=== PATIENT | male | born 1950 | race Caucasian/White ===

== ENCOUNTER 2016-07-06 07:13 | Day surgery (SDC) | payer OTHER ==
--- NOTE | 2016-07-03 14:23 | EKG Report ---
Test Performed on : 07/03/2016 2:19:09 PM Test Reason : PAT Blood Pressure : / mmHG Vent. Rate : 068 BPM Atrial Rate : 068 BPM P-R Int : 166 ms QRS Dur : 100 ms QT Int : 398 ms P-R-T Axes : 064 -33 022 degrees QTc Int : 423 ms Normal sinus rhythm. Left axis deviation Abnormal ECG When compared with ECG of 12-APR-2015 10:09, No significant change was found Confirmed by Jennifer NEELY, Rai Perry ([id number]) on 07/03/2016 4:28:42 PM
[2016-07-03 15:20] LABS: HEMATOCRIT 42.6 % (42.0-52.0); HEMOGLOBIN 14.1 g/dL (14.0-18.0); MCH 30.1 PG (27-31); MCHC 33.1 g/dL (33-37); MCV 90.8 FL (81-99); MPV 11.8 FL (7.4-10.4); RBC 4.69 XMIL (4.7-6.1)
[2016-07-03 15:35] LABS: CALCIUM 8.9 mg/dL (8.8-10.2); POTASSIUM 4.8 mmol/L (3.5-5.1); URIC ACID 6.9 mg/dL (3.4-7.0)
[2016-07-06] MEDS ORDERED: KEFZOL 2 GM/D5W 50 ML ONE (07:38)
[2016-07-06] MEDS ORDERED: REGLAN ONE (07:38)
[2016-07-06] MEDS ORDERED: LR 1,000 ML ONE (07:38)
[2016-07-06] MEDS ORDERED: PEPCID ONE (07:38)
[2016-07-06] MEDS ORDERED: DIPRIVAN 1% ONE (09:26)
[2016-07-06] MEDS ORDERED: LR 500 ML ONE (09:41)
[2016-07-06 10:22] VITALS: BP 122/72
--- NOTE | 2016-07-06 15:23 | OPERATIVE NOTE ---
PROCEDURE DATE: 07/06/2016 SURGEON: Fransisco Kraus MD PREOPERATIVE DIAGNOSIS: Right lower pole kidney stone. POSTOPERATIVE DIAGNOSIS: Right lower pole kidney stone. PROCEDURE PERFORMED: Extracorporeal shockwave lithotripsy of the right lower pole stone. ANESTHESIA: General via laryngeal mask. FINDINGS: An approximate 8 mm stone in the right lower pole. INDICATION FOR PROCEDURE: This 65-year-old male with history of renal lithiasis has a right lower pole stone. DESCRIPTION OF PROCEDURE: After informed consent was obtained from the patient, and him receiving IV antibiotics, he was taken the main OR, placed in the supine position. General anesthesia via laryngeal mask was achieved. He was then placed in a proper position for right lower pole extracorporeal shockwave lithotripsy. He received 12.5 g of mannitol at the start. The stone received 3000 shocks at a rate of 120 per minute. At completion, the stone appeared well fragmented. Total fluoroscopy time was 4 minutes 2 seconds. He tolerated the procedure well. ESTIMATED BLOOD LOSS: Zero. DISPOSITION: He was taken to the recovery room in good condition.
== END 2016-07-06 10:22 | disposition home or self-care (01) ==
LOC: PAT 07:13
PROVIDERS: ATTEND Urology
DX: N20.0 Calculus of kidney (principal); N40.0 Benign prostatic hyperplasia without lower urinary tract symptoms; I10 Essential (primary) hypertension
CPT/HCPCS: 80048; 84550; 85027; 93005; 93010; J0690; J7120